=== PATIENT | female | born 2005 | race Two or more races ===

== ENCOUNTER 2024-12-27 00:27 | Emergency (ER) | payer OTHER ==
[~2024-12-27] VITALS: Ht 162.6 cm; Wt 84.1 kg
[2024-12-27 00:52] LABS: APPEARANCE,URINE CLEAR (CLEAR); GLUCOSE, URINE (UA) NEGATIVE (NEGATIVE); LEUKOCYTE ESTERASE ,URINE NEGATIVE (NEGATIVE); NITRATE,URINE NEGATIVE (NEGATIVE); OCCULT BLOOD,URINE TRACE (NEGATIVE); SPECIFIC GRAVITIY, URINE 1.019 (1.003-1.030)
[2024-12-27 01:14] LABS: PLATELET COUNT (AUTO) 394 K/uL (150-450); RED BLOOD CELL COUNT(AUTO) 4.23 MIL/uL (4.00-5.20); RED CELL DISTRIBUTION WIDTH 13.8 % (11.5-14.5); WHITE BLOOD COUNT (AUTO) 12.6 K/uL (4.5-11.0)
[2024-12-27 01:15] LABS: SQUAMOUS EPITHELIAL CELL,UR Rare /LPF (None Seen)
[2024-12-27 01:23] LABS: CALCIUM, TOTAL 9.0 mg/dL (8.8-10.5); CREATININE 0.48 mg/dL (0.60-1.30); GLOMERULAR FILTR. RATE CALC > 60 mL/min (>60); GLUCOSE,RANDOM 103 mg/dL (70-110); SODIUM SERUM 137 mmol/L (136-145); UREA NITROGEN, BLOOD 11 mg/dL (7-18)
[2024-12-27 01:49] LABS: ASPARTATE AMINOTRANSFERASE 15 U/L (15-37); HCG,QUANTITATIVE 21727 mIU/mL (0-6); TOTAL PROTEIN, SERUM 7.3 g/dL (6.4-8.2)
[2024-12-27 03:00] VITALS: BP 119/65; PULSE 74; RESP 18; TEMP 97.3; O2SAT 98
== END 2024-12-27 03:31 | disposition home or self-care (01) ==
LOC: EMS 00:28
DX: O20.0 Threatened abortion (principal)
CPT/HCPCS: 76801; 80053; 81001; 84702; 85025; 99284